=== PATIENT | male | born 1975 | race Hispanic/Latino ===

== ENCOUNTER 2019-06-13 06:12 | Inpatient (IN) | payer BC, OTHER ==
[~2019-06-13] VITALS: Ht 182.9 cm; Wt 136.7 kg
[2019-06-13] MEDS ORDERED: FUROSEMIDE 10 MG/ML 4ML VIAL ONE (06:26)
[2019-06-13 06:36] LABS: BASOPHILS % (AUTO) 0.2 % (0.0-5.0); EOSINOPHILS % (AUTO) 0.3 % (0.0-8.0); HEMATOCRIT 39.6 % (42-54); LYMPHOCYTES % (AUTO) 10.5 % (21.0-51.0); MEAN CORPUSCULAR HGB CONC 29.3 g/dL (32.0-36.0); MEAN CORPUSCULAR VOLUME 71.6 fL (79-99); MONOCYTES % (AUTO) 6.6 % (3.0-13.0); NUCLEATED RED BLOOD CELLS 0.2 % (0.0-0.19); PLATELET COUNT (AUTO) 263 K/uL (130-400); RED BLOOD CELL COUNT(AUTO) 5.53 MIL/uL (4.50-6.20); RED CELL DISTRIBUTION WIDTH 19.2 % (11.0-15.5); WHITE BLOOD COUNT (AUTO) 10.4 K/uL (4.8-10.8)
[2019-06-13 06:44] LABS: CREATININE 2.4 mg/dL (0.5-1.5); POTASSIUM 3.4 mmol/L (3.5-5.1)
[2019-06-13 06:50] LABS: ALBUMIN 3.2 g/dL (3.5-5.0); BILIRUBIN,TOTAL 0.7 mg/dL (0.2-1.0); TOTAL PROTEIN, SERUM 7.8 g/dL (6.0-8.3)
[2019-06-13 07:03] LABS: INR 1.18 (0.85-1.15); PARTIAL THROMBOPLASTIN TIME 26.6 SEC (26.3-35.5); PROTHROMBIN TIME 12.7 SEC (9.6-11.6)
[2019-06-13] MEDS ORDERED: HYDRALAZINE HCL 20 MG/ML VIAL IV PRN (07:15)
[2019-06-13] MEDS ORDERED: ACETAMINOPHEN 325 MG TAB PO PRN (07:15)
[2019-06-13] MEDS ORDERED: ONDANSETRON HCL 4 MG/2 ML VIAL IV PRN (07:15)
[2019-06-13] MEDS ORDERED: NITROGLYCERIN 0.4 MG SL TAB SL PRN (07:15)
[2019-06-13] MEDS ORDERED: BUMETANIDE 0.25 MG/ML 10 ML VIAL IV SCH (07:15)
[2019-06-13 07:21] LABS: B-TYPE NATRIURETIC PEPTIDE 824 pg/mL (0-100)
[2019-06-13] MEDS ORDERED: ENOXAPARIN SODIUM 30 MG/0.3 ML SQ SCH (09:00)
[2019-06-13] MEDS ORDERED: ENOXAPARIN SODIUM 30 MG/0.3 ML SQ ONE (09:04)
[2019-06-13] MEDS: INSULIN HUMULIN R 100 UNIT/ML 3ML SQ SCH ×3 (11:30→21:00)
[2019-06-13 12:10] VITALS: BP 137/84
[2019-06-13] MEDS: BUMETANIDE 0.25 MG/ML 80 ML IV SCH (14:14)
[2019-06-13] MEDS: FAMOTIDINE 20MG TAB 20 MG TAB PO SCH ×2 (14:15→21:09)
--- NOTE | 2019-06-13 14:59 | NUR ---
INITIAL ASSESSMENT BARRIERS CALL TO SPOUSE KIMBERLY OCHOA PHONE # LISTED ON FACE SHEET- [phone]- 'YANCY' ANSWERED, STATED WRONG NUMBER- CALL TO PT NUMBER ON FACE SHEET- [phone]- BUSY. WILL RE ATTEMPT. PATIENT ON DROPLET, NO IN FACE INITIAL ASSESSMENT ATTEMPTED Addendum: 06/13/19 at 1503 by MARIZOL LEAL RN Amended: Links added.
[2019-06-13] MEDS ORDERED: INSU100V37 SQ (15:06)
[2019-06-13] MEDS ORDERED: SACU1TAB4 PO (15:06)
[2019-06-13] MEDS ORDERED: ALLO100T PO (15:06)
[2019-06-13] MEDS ORDERED: FURO-151 PO (15:06)
[2019-06-13] MEDS ORDERED: BUME1TAB7 PO (15:06)
[2019-06-13] MEDS ORDERED: ASPI-556 PO (15:06)
[2019-06-13] MEDS ORDERED: CARV25TA77 PO (15:06)
[2019-06-13] MEDS ORDERED: RIVA15TA PO (15:06)
[2019-06-13] MEDS ORDERED: ATOR40TA71 PO (15:06)
[2019-06-13] MEDS ORDERED: AMIO200T6 PO (15:06)
[2019-06-13] MEDS ORDERED: HEPARIN 25000 UNITS/250 ML D5W 250 ML IV SCH (15:45)
--- NOTE | 2019-06-13 16:01 | NUR ---
SPOKE TO SPOUSE KIMBERLY PT ON DROPLET PRECAUTIONS, REC'D UPDATED PHONE NUMBER FROM PRIMARY NURSE CHERRI AND FAXED TO REGISTRATION [phone] PT LIVES WITH SPOUSE, NEEDS ASSISTANCE WITH ADLS. SPOUSE STATES PATIENT USES A CANE A WALKER AND A WHEELCHAIR, CAN DRIVE TO MD APPOINTMENTS BUT HAS GRADUALLY BECOMING SHORT OF BREATH OVER THE LAST MONTH BUT HAS BEEN UNABLE TO WORK FOR ABOUT TEN YEARS. HX OF [place], SEES A CHF SPECIALIST IN [place]- BONLILA LUNA- SEES DR. MARTIN AT [facility] 'QUITE OFTEN-" HIS ELECTROLYTE, POTASSIUM AND SUCH ARE ALWAYS ALL OVER THE PLACE' SPOUSE ASKING ABOUT SSI, STATES DR. JONES TOLD THEM HE 'DOES NOT BELIEVE IN SIGNING SSI FORMS.' WILL TAG CHART FOR OBINNA DODD/Fozia . POSSIBILITY OF HD ON THIS ADMIT OR IN THE NEAR FUTURE. Addendum: 06/13/19 at 1608 by MARIZOL LEAL RN CM Amended: Links added.
[2019-06-13] MEDS: NITROGLYCERIN 1GM/1 INCH PACKET TD SCH (16:18)
[2019-06-13 16:29] LABS: BASOPHILS % (AUTO) 0.2 % (0.0-5.0); HEMATOCRIT 41.8 % (42-54); MEAN CORPUSCULAR HGB CONC 28.5 g/dL (32.0-36.0); MEAN CORPUSCULAR VOLUME 73.7 fL (79-99); NEUTROPHILS % (AUTO) 88.2 % (40.0-77.0); NUCLEATED RED BLOOD CELLS 0.2 % (0.0-0.19); PLATELET COUNT (AUTO) 269 K/uL (130-400); RED BLOOD CELL COUNT(AUTO) 5.67 MIL/uL (4.50-6.20); RED CELL DISTRIBUTION WIDTH 19.9 % (11.0-15.5); WHITE BLOOD COUNT (AUTO) 14.7 K/uL (4.8-10.8)
[2019-06-13 16:36] VITALS: BP 137/102
--- NOTE | 2019-06-13 16:45 | NUR ---
PT DENIES ANY SOB, REPORTING "FINE" WITH RESPIRATIONS =28. LETHARGIC YET AROUSABLE. TEMP = Addendum: 06/13/19 at 2032 by JORGE CAMPOS RN [id number]. PT AROUSABLE ANSWERING CORRECTLY OPENING EYES, ANSWERING QUESTIONS BUT WOULD FALL ASLEEP. AROUSABLE TO AUDITORY WHEN ASKED QUESTIONS AND WOULD CLOSE EYES FALLING ASLEEP. O2@3L/NC O2 SAT=95% WITH HOB ELEVATED 40 DEGREES. PT DENIES ANY CHEST PAIN WELL. PT REPORTS HE IS COUGHING MORE AND PT ALREADY PLACED IN DROPLET PRECAUTIONS. NOTIFED DR. PENN OF PT'S STATUS AND PT REPORTING HE WAS AWAITING HEART TRANSPLANT AND WAS REASON HE WAS IN [facility] THIS PAST WEEK TO SIGN UP. DR. PENN ORDERED IF PT [facility] PT TRANSFERRED. PT SLIGHTLY MORE AWAKE WHEN TRANSFERRED WITH RESPIRATIONS =26. PT WITH AUDIBLE WHEEZING IN ROOM 201 WITH REPORT GIVEN TO JEANNA.PT REPORTS TROPONIN 0.60 IS HIS BASELINE. WHEN ASKED WHY HE HAD NOT REPORTED WHEN INFORMED HIM OF REASONS PT BEING TRANSFERRED, HE SAID HE DIDNT KNOW WHAT IT WAS. DR. PENN TO BE NOTIFIED BY JEANNA REGARDING PT'S REPORT OF TROPONIN BASELINE LEVEL. Addendum: 06/14/19 at 0736 by JORGE CAMPOS RN INCIDENT OF PATIENT'S DISTRESS STARTED AT TIME NOTED. TRANSFERRED PT AT 1730.
--- NOTE | 2019-06-13 16:46 | NUR ---
MQ=661 NOT COVERED. PT DID NOT EAT HIS DINNER. PATIENT WITH DECREASED APPETITE. MB=320 IN ER W 14UNITS GIVEN ABOUT 9 AM. SEE NOTES. NX=168 BEFORE LUNCH. PT DID NOT EAT. HELD COVERAGE. BS=20O PT SAID IS NOT HUNGRY. WILL CONTINUE TO MONITOR.
--- NOTE | 2019-06-13 17:30 | NUR ---
RECEIVED TRANSFER TO ROOM 201 VIA BED ACCOMPANIED BY BISMARK PATEL. PT. AAOX3, EXERTIONAL SOB NOTED. O2 AT 3L/NC. DENIES ANY CURRENT SOB. BUMEX GTT INFUSING AT 1MG/HR VIA IV PUMP, IV SITE W/O EDEMA OR ERYTHEMA. ORIENTED TO ROOM AND SURROUNDINGS. BED LOW, SIDE RAILS UP X2. CALL LIGHT WITHIN REACH, VERBALIZED ABILITY TO USE. HEPARIN GTT TO BE STARTED BY BISMARK PATEL.
[2019-06-13] MEDS ORDERED: HEPARIN SODIUM 5000UNIT/ML 1ML VIAL IV PRN (17:45)
[2019-06-13 18:03] LABS: APPEARANCE,URINE Clear (CLEAR); BILIRUBIN,URINE Negative (NEGATIVE); COLOR,URINE Yellow (YELLOW); GLUCOSE, URINE (UA) Negative (NEGATIVE); KETONES,URINE Negative (NEGATIVE); LEUKOCYTE ESTERASE ,URINE Negative (NEGATIVE); NITRATE,URINE Negative (NEGATIVE); OCCULT BLOOD,URINE Negative (NEGATIVE); PROTEIN,URINE POS 1+ mg/dL (NEGATIVE)
[2019-06-13 18:07] LABS: CREATININE,URINE RANDOM 58 mg/dL (30-135); PROTEIN,URINE RANDOM 38.5 mg/dL (0-11.9)
[2019-06-13 18:09] VITALS: BP 119/83
[2019-06-13 18:13] LABS: BACTERIA,URINE Rare /HPF (None Seen); RBC,URINE 0-1 /HPF (0-1); SQUAMOUS EPITHELIAL CELL,UR Rare /HPF (0-2); WBC,URINE 0-1 /HPF (0-1)
[2019-06-13 18:14] LABS: HYALINE CASTS, URINE 0-1 /LPF (0-1 /LPF)
--- NOTE | 2019-06-13 18:40 | NUR ---
NOTIFIED DR. PENN PT. STATES, "MY TROPONINS RUN LIKE THAT [0.60]." ORDER TO D/C HEPARIN RECEIVED.
[2019-06-13 19:36] VITALS: BP 130/98
[2019-06-13] MEDS: ATORVASTATIN CALCIUM 40 MG TABLET PO SCH (21:09)
[2019-06-13] MEDS: CARVEDILOL 6.25 MG TABLET PO SCH (21:09)
[2019-06-13] MEDS: INSULIN GLARGINE 100 UNITS/ML 10 ML VIAL SQ SCH (21:13)
[2019-06-13 23:24] VITALS: BP 115/69
[2019-06-14 01:04] LABS: BASOPHILS % (AUTO) 0.2 % (0.0-5.0); HEMATOCRIT 36.1 % (42-54); LYMPHOCYTES % (AUTO) 12.6 % (21.0-51.0); MEAN CORPUSCULAR HEMOGLOBIN 20.8 pg (27.0-33.0); MEAN CORPUSCULAR HGB CONC 29.1 g/dL (32.0-36.0); MEAN CORPUSCULAR VOLUME 71.3 fL (79-99); NEUTROPHILS % (AUTO) 80.9 % (40.0-77.0); PLATELET COUNT (AUTO) 244 K/uL (130-400); RED BLOOD CELL COUNT(AUTO) 5.06 MIL/uL (4.50-6.20); RED CELL DISTRIBUTION WIDTH 19.8 % (11.0-15.5); WHITE BLOOD COUNT (AUTO) 10.2 K/uL (4.8-10.8)
[2019-06-14 01:11] LABS: INR 1.2 (0.85-1.15); PARTIAL THROMBOPLASTIN TIME 29.9 SEC (26.3-35.5); PROTHROMBIN TIME 12.9 SEC (9.6-11.6)
[2019-06-14 01:14] LABS: ALBUMIN 2.8 g/dL (3.5-5.0); BILIRUBIN,TOTAL 1.1 mg/dL (0.2-1.0); CREATININE 2.1 mg/dL (0.5-1.5); MAGNESIUM 2.2 mg/dL (1.80-2.40); TOTAL PROTEIN, SERUM 7.2 g/dL (6.0-8.3)
[2019-06-14 01:19] LABS: B-TYPE NATRIURETIC PEPTIDE 1040 pg/mL (0-100)
[2019-06-14 01:34] LABS: HEMOGLOBIN A1C 11.8 % (4.0-6.0)
[2019-06-14 02:54] LABS: % IRON SATURATION 5.3 % (30-44)
[2019-06-14] MEDS ORDERED: POTASSIUM CHLORIDE 20 MEQ ERTAB PO SCH (03:15)
[2019-06-14 03:23] VITALS: BP 126/86
[2019-06-14] MEDS: NITROGLYCERIN 1GM/1 INCH PACKET TD SCH ×4 (03:36→23:32)
[2019-06-14] MEDS: INSULIN HUMULIN R 100 UNIT/ML 3ML SQ SCH ×4 (05:39→22:18)
[2019-06-14 07:53] VITALS: BP 126/88
[2019-06-14 08:05] LABS: ABG BASE EXCESS 8.7 mmol/L (-2.0-3.0); ABG HCO3 33.8 mmol/L (21.0-28.0); ABG OXYGEN SATURATION 96.4 % (95.0-99.0); ABG PCO2 48 mmHg (35-48)
[2019-06-14] MEDS: AMIODARONE HCL 200 MG TABLET PO SCH (09:04)
[2019-06-14] MEDS: ASPIRIN 81 MG EC TAB PO SCH (09:04)
[2019-06-14] MEDS: ALLOPURINOL 100 MG TABLET PO SCH (09:04)
[2019-06-14] MEDS: FAMOTIDINE 20MG TAB 20 MG TAB PO SCH ×2 (09:04→20:23)
[2019-06-14] MEDS: CARVEDILOL 6.25 MG TABLET PO SCH ×2 (09:05→20:23)
[2019-06-14] MEDS: SPIRONOLACTONE 25 MG TAB PO SCH (11:36)
[2019-06-14] MEDS: POTASSIUM CHLORIDE 20 MEQ ERTAB PO SCH (11:37)
[2019-06-14] MEDS: IPRATROPIUM 0.5 MG/2.5 ML INH IH PRN ×3 (11:55→23:14)
[2019-06-14] MEDS: BUMETANIDE 0.25 MG/ML 80 ML IV SCH (11:57)
[2019-06-14 12:12] VITALS: BP 127/85
[2019-06-14] MEDS ORDERED: COMPOUND IV MISC 1 EACH IVSOLN MISC PRN (12:30)
--- NOTE | 2019-06-14 14:58 | NUR ---
NUTRITION EDUCATION KYLER provided Diabetes and Weight Loss Nutrition Education. Pt refusal of reference materials and handouts. KYLER discussed with Pt lifestyle modification for improved health outcomes. KYLER encouraged Pt to notify as additional questions or concerns arise. Addendum: 06/14/19 at [address] Amended: Links added. Addendum: 06/14/19 at [address] ADDENDUM KYLER also discussed nutrition recommendations for Fluid overload with Pt. Pt verbalized understanding.
--- NOTE | 2019-06-14 15:06 | NUR ---
RD NOTIFICATION Pt tolerating Renal, Heart healthy, 75gm CCD with no report of GI distress. Pt reports fair/improving appetite, PO intake 25-50%. RD provided nutrition education for Diabetes, Weight loss, Fluid overload. Noted, 2+ BLE edema. BNP 1040 at time of screen. Will continue to monitor Pt nutritional labs and PO status. Please notify RD as additional nutrition concerns arise. Thank you. Addendum: 06/14/19 at [address] Amended: Links added.
[2019-06-14 16:29] VITALS: BP 131/69
[2019-06-14 19:32] VITALS: BP 122/95
[2019-06-14] MEDS: ATORVASTATIN CALCIUM 40 MG TABLET PO SCH (20:23)
[2019-06-14] MEDS: INSULIN GLARGINE 100 UNITS/ML 10 ML VIAL SQ SCH (22:18)
[2019-06-14 23:59] VITALS: BP 121/86
[2019-06-15 03:59] LABS: EOSINOPHILS % (AUTO) 5.6 % (0.0-8.0); HEMATOCRIT 36.5 % (42-54); LYMPHOCYTES % (AUTO) 21.1 % (21.0-51.0); MEAN CORPUSCULAR VOLUME 72.3 fL (79-99); MONOCYTES % (AUTO) 10.1 % (3.0-13.0); NEUTROPHILS % (AUTO) 62.7 % (40.0-77.0); PLATELET COUNT (AUTO) 244 K/uL (130-400); RED BLOOD CELL COUNT(AUTO) 5.05 MIL/uL (4.50-6.20); RED CELL DISTRIBUTION WIDTH 19.1 % (11.0-15.5); WHITE BLOOD COUNT (AUTO) 6.3 K/uL (4.8-10.8)
[2019-06-15 04:00] VITALS: BP 124/91
[2019-06-15 04:22] LABS: B-TYPE NATRIURETIC PEPTIDE 1140 pg/mL (0-100)
[2019-06-15 04:28] LABS: ALBUMIN 2.8 g/dL (3.5-5.0); BILIRUBIN,TOTAL 1.2 mg/dL (0.2-1.0); CREATININE 2.1 mg/dL (0.5-1.5); MAGNESIUM 2.2 mg/dL (1.80-2.40); PHOSPHORUS 3.4 mg/dL (2.5-4.9); POTASSIUM 3.2 mmol/L (3.5-5.1); TOTAL PROTEIN, SERUM 7.1 g/dL (6.0-8.3)
[2019-06-15] MEDS: INSULIN HUMULIN R 100 UNIT/ML 3ML SQ SCH ×2 (06:00→11:28)
[2019-06-15 07:00] VITALS: BP 148/102
[2019-06-15] MEDS: IPRATROPIUM 0.5 MG/2.5 ML INH IH PRN ×2 (07:05→11:03)
[2019-06-15] MEDS: NITROGLYCERIN 1GM/1 INCH PACKET TD SCH (08:00)
--- NOTE | 2019-06-15 08:30 | NUR ---
AM ASSESSMENT PT SITTING IN BED, WATCHING TV. A/O X 3. NO SOB. NO DISTRESS NOTED. DENIES CHEST PAIN OR DISCOMFORT. DENIES PALPITATIONS. TELE: PACED. DENIES N/V AND/OR DIARRHEA. KAMLA MCKINNEY DC'D THIS AM. UP W/ASSISTANCE. INSTRUCTED TO CALL FOR ASSISTANCE. CALL RAHEL W/IN REACH.
[2019-06-15] MEDS ORDERED: IRON SUCROSE COMPLEX 100 MG in SODIUM CHLORIDE 0.9% 50 ML IV SCH (09:00)
[2019-06-15] MEDS: POTASSIUM CHLORIDE 20 MEQ ERTAB PO SCH (09:15)
[2019-06-15] MEDS ORDERED: BUME1TAB7 PO (09:54)
[2019-06-15] MEDS ORDERED: ZARO5 PO (09:54)
[2019-06-15] MEDS: SPIRONOLACTONE 25 MG TAB PO SCH (10:16)
[2019-06-15] MEDS: ASPIRIN 81 MG EC TAB PO SCH (10:16)
[2019-06-15] MEDS: ALLOPURINOL 100 MG TABLET PO SCH (10:16)
[2019-06-15] MEDS: FAMOTIDINE 20MG TAB 20 MG TAB PO SCH (10:16)
[2019-06-15] MEDS: AMIODARONE HCL 200 MG TABLET PO SCH (10:16)
[2019-06-15] MEDS: CARVEDILOL 6.25 MG TABLET PO SCH (10:16)
[2019-06-15 11:00] VITALS: BP 141/99
[2019-06-15] MEDS ORDERED: INSULIN HUMULIN R 100 UNIT/ML 3ML SQ SCH (11:30)
--- NOTE | 2019-06-15 11:30 | NUR ---
DISCHARGE TELE CORNELIA REMOVED @ THIS TIME. IV DC'D. PT TO BE GIVEN DISCHARGE INSTRUCTIONS.
--- NOTE | 2019-06-15 12:40 | NUR ---
DISCHARGE VERBAL & WRITTEN DISCHARGE INSTRUCTIONS REVIEWED & GIVEN TO PT. QUESTIONS ENCOURAGED & CLARIFIED. PROPER CARE & MGT OF FLUID OVERLOAD & CHF EXACERBATION REVIEWED W/PT. NEW PRESCRIBED MEDICATIONS REVIEWED. PT REQUESTING TO HAVE PRESCRIPTION CALLED IN THERESE @ [facility]. CURRENTLY WRONG PHARMACY RECORDED IN PT'S CHART. DISCONTINUED MEDS ALSO REVIEWED. PT TO GATHER PERSONAL BELONGINGS. WILL NOTIFY STAFF WHEN FAMILY ARRIVES TO ER ENTRANCE TO TAKE PT HOME.
--- NOTE | 2019-06-15 12:50 | NUR ---
DISCHARGE FAMILY HERE @ ER ENTRANCE TO TAKE PT HOME. PT TAKEN TO PRIVATE VEHICLE VIA WC BY Jeane VILLASENOR PCP. NO DISTRESS NOTED.
--- NOTE | 2019-06-15 12:52 | NUR ---
DISCHARGE PRESCRIPTION FOR PT CALLED IN TO [facility] ON [address] [facility]. SPOKE W/RON PHARMACIST. PREFERRED PHARMACY CHANGED IN PT'S RECORD.
== END 2019-06-15 12:50 | disposition home or self-care (01) | DRG 291 ==
LOC: EDH 06:12 → EDHIP 07:13 → 4DH 10:43 → 2AH 17:27
PROVIDERS: ADMIT Internal Medicine; ATTEND Internal Medicine
DX: I13.0 Hypertensive heart and chronic kidney disease with heart failure and stage 1 through stage 4 chronic kidney disease, or unspecified chronic kidney disease (principal); I50.21 Acute systolic (congestive) heart failure; N17.9 Acute kidney failure, unspecified; E44.0 Moderate protein-calorie malnutrition; Z68.41 Body mass index [BMI] 40.0-44.9, adult; I42.9 Cardiomyopathy, unspecified; N18.9 Chronic kidney disease, unspecified; E11.22 Type 2 diabetes mellitus with diabetic chronic kidney disease; E78.5 Hyperlipidemia, unspecified; E11.65 Type 2 diabetes mellitus with hyperglycemia; E66.01 Morbid (severe) obesity due to excess calories; D50.9 Iron deficiency anemia, unspecified; E87.6 Hypokalemia; I48.91 Unspecified atrial fibrillation; J44.9 Chronic obstructive pulmonary disease, unspecified; F17.200 Nicotine dependence, unspecified, uncomplicated; I25.10 Atherosclerotic heart disease of native coronary artery without angina pectoris; N18.3 Chronic kidney disease, stage 3 (moderate); E11.42 Type 2 diabetes mellitus with diabetic polyneuropathy; Z79.4 Long term (current) use of insulin; Z86.73 Personal history of transient ischemic attack (TIA), and cerebral infarction without residual deficits; Z95.810 Presence of automatic (implantable) cardiac defibrillator; Z83.3 Family history of diabetes mellitus; Z79.899 Other long term (current) drug therapy; Z79.84 Long term (current) use of oral hypoglycemic drugs
CPT/HCPCS: 36415; 36600; 71045; 76770; 80053; 81001; 82550; 82570; 82803; 82948; 83036; 83540; 83550; 83735; 83880; 84100; 84156; 84484; 85025; 85610; 85730; 86140; 93005; 94640; 94664; G0378; J1644; J1650; J1756; J1815; J1940; J3490